=== PATIENT | male | born 1980 | race Two or more races ===

== ENCOUNTER 2025-02-20 12:17 | Inpatient (IN) | payer MEDICAID ==
[~2025-02-20] VITALS: Ht 170.2 cm; Wt 115.6 kg
--- NOTE | 2025-02-20 13:01 | ED.PDOC ---
General HPI Comments 44 y/o M, presents to the ED for CC of flank pain. Patient states, that he has been experiencing right sided flank pain that radiates to his lower back and abdomen x1day. Patient endorse, taking a Morton last night which he received from a friend who previously was diagnosed with urolithiasis. Patient denies fever, chills, body-aches, hematuria, nausea, or vomiting. No other symptoms or modifying factors present at this time. Time Seen by MD: 12:45 Primary Care Provider: None Reviewed notes: Nurses Notes, Medications, Allergies Allergies: Coded Allergies: NO KNOWN ALLERGIES (Unverified , 08/06/14) Information Source: Patient Mode of Arrival: Ambulatory Severity: Moderate Inability to void: None Timing: Days Duration: Since onset Prehospital treatment: None Onset: Spontaneous Symptoms: None History of: None Location: None Penile discharge: None Modifying factors: None associated signs and symptoms: Abdominal Pain, Flank Pain, Back Pain Past Medical History PAST MEDICAL HISTORY: Denies Surgical History: Denies all surgeries Family History Family History: Unknown Social History Smoker: Non-Smoker Alcohol: Occasionally Drugs: Denies Drug Use Lives In: Home Constitutional: denies: chills, diaphoresis, fatigue, fever, malaise, sweats, weakness, others EENTM: denies: blurred vision, double vision, ear bleeding, ear discharge, ear drainage, ear pain, ear ringing, eye pain, eye redness, hearing loss, mouth pain, mouth swelling, nasal discharge, nose bleeding, nose congestion, nose pain , photophobia, tearing, throat pain, throat swelling, voice changes, others Respiratory: denies: cough, hemoptysis, orthopnea, SOB at rest, shortness of breath, SOB with excertion, stridor, wheezing, others Cardiovascular: denies: chest pain, dizzy spells, diaphoresis, Dyspnea on exertion, edema, irregular heart beat, left arm pain, lightheadedness, palpitations, PND, syncope, others Gastrointestinal: reports: abdominal pain; denies: abdomen distended, blood streaked bowels, constipated, diarrhea, dysphagia, difficulty swallowing, hematemesis, melena, nausea, poor appetite, poor fluid intake, rectal bleeding, rectal pain, vomiting, others Genitourinary: reports: flank pain; denies: burning, dysuria, frequency, hematuria, incontinence, penile discharge, penile sore, pain, testicle pain, testicle swelling, urgency, others Neurological: reports: dizziness, fainting, headache, left sided numbness, left sided weakness, numbness, paresthesia, pre-existing deficit, right sided numbness, right sided weakness, seizure, speech problems, tingling, tremors, weakness, others Musculoskeletal: reports: back pain; denies: gout, joint pain, joint swelling, muscle pain, muscle stiffness, neck pain, others Integumetry: denies: bruises, change in color, change in hair/nails, dryness, laceration, lesions, lumps, rash, wounds, others Allergic/Immunocompromised: denies: Difficulty Healing, Frequent Infections, Hives, Itching, others Hematologic/Lymphatic: denies: anemia, blood clots, easy bleeding, easy bruising, swollen glands, others Endocrine: denies: excessive hunger, excessive sweating, excessive thirst, excessive urination, flushing, intolerance to cold, intolerance to heat, unexplained weight gain, unexplained weight loss, others Psychiatric: denies: anxiety, bipolar disorder, depression, hopeless, panic disorder, schizophrenia, sleepless, suicidal, others All Other Systems: Reviewed and Negative Physical Exam General Appearance: Moderate Distress HEENT: Normal ENT Inspection, Pharynx Normal, TMs Normal Neck: Full Range of Motion, Non-Tender, Normal, Normal Inspection Respiratory: Chest Non-Tender, Lungs Clear, No Accessory Muscle Use, No Respiratory Distress, Normal Breath Sounds Cardiovascular: No Edema, No JVD, No Murmur, No Gallop, Normal Peripheral Pulses, Regular Rate/Rhythm Breast Exam: Deferred Gastrointestinal: No Organomegaly, Non Tender, No Pulsatile Mass, Normal Bowel Sounds, Soft Genitalia: Deferred Pelvic: Deferred Rectal: Deferred Extremities: No calf tenderness, Normal capillary refill, Normal inspection, Normal range of motion, Non-tender, No pedal edema Musculoskeletal : Location: Right Extremity Location: Back Apperance: Tenderness: Moderate Neurologic: Alert, 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 Was a procedure done?: No Differential Diagnosis Kidney stone (Female): N/A Kidney stone (Male): Pancreatitis, Pyelonephritis, Urinary obstruction, Urolithiasis, Urinary tract infection X-Ray, Labs, Meds, VS Vital Signs Date Time Temp Pulse Resp B/P (MAP) Pulse Ox O2 Delivery O2 Flow Rate FiO2 02/20/25 13:45 72 72 97 Room Air* 0 21 02/20/25 13:45 98.3 72 16 116/69 (85) 97 98.3 02/20/25 12:17 98.5 88 20 134/82 (99) 96 98.5 Lab Test 02/20/25 13:14 Range/Units Sodium Level 140 136-145 mmol/L Potassium Level 3.7 3.5-5.1 mmol/L Chloride Level 107 98-107 mmol/L Carbon Dioxide Level 28 20-31 mmol/L Anion Gap 5 5-15 Blood Urea Nitrogen 16 9-23 mg/dL Creatinine 1.29 0.700-1.30 mg/dL Glomerular Filtration Rate Calc 71 >90 mL/min BUN/Creatinine Ratio 12.4 10.0-20.0 Serum Glucose 126 H 74-106 mg/dL Calcium Level 9.9 8.7-10.4 mg/dL Current Medications Medications (Trade) Dose Ordered Sig/Francisca Route Start Time Stop Time Status Last Admin Ketorolac Tromethamine (Toradol Injection) 60 mg ONCE ONCE IM 02/20/25 13:15 02/20/25 13:16 DC 02/20/25 13:38 CT ABD PEL: MPRESSION: 1. Obstructing calculus in the proximal right ureter measuring up to 4 mm associated with [id number] right hydronephrosis. Nonobstructing left lower pole renal calculus. Urology evaluation is recommended. Diffuse hepatic steatosis. Radiation optimization: All CT scans at this facility use at least one of these dose optimization techniques: Automated exposure control mA and/or kV adjustment per patient size (includes targeted exams where dose is matched to clinical indication) or iterative reconstruction. HS:Y Hep-Lock was established The patient was given a bolus of normal saline 1 L The patient was initially given Toradol 60 mg IM The chemistry panel is negative The urine test is pending At this time, the patient was being admitted to the hospitalist A urology consult will be obtained secondary to the size of the stone and hydronephrosis. Images Reviewed?: Images reviewed and evaluated by me Time of 1ST Reevaluation: 13:15 Reevaluation 1ST: Unchanged Patient Education/Counseling: Diagnosis, Treatment, Prognosis Family Education/Counseling: No Family Present Departure 1 Departure Time of Disposition: 14:53 Impression: Primary Impression: Intractable abdominal pain Additional Impressions: Hydronephrosis Qualified Codes: N13.2 - Hydronephrosis with renal and ureteral calculous obstruction Ureterolithiasis Disposition: ADMITTED INPATIENT Admit to: Med Surg Condition: Fair Critical Care Note Critical Care Time?: No Stability Stability form required: Yes Unstable for transfer: ED Physician Assesment (Clinical assesment) Heart Score Heart Score: Heart Score Response (Comments) Value History N/A 0 EKG N/A 0 Age N/A 0 Risk Factors N/A 0 Troponin N/A 0 Total 0 I personally scribed for VETO LOUIS MD ([email or web address]) on 02/20/25 at 13:00. Electronically submitted by Denise Rosa ([email or web address]). I personally scribed for VETO LOUIS MD ([email or web address]) on 02/20/25 at 14:48. Electronically submitted by Denise Rosa ([email or web address]). VETO LOUIS MD Feb 20, 2025 13:00
[2025-02-20] MEDS ORDERED: ASPirin 81 mg TAB PO ONE (13:15)
[2025-02-20 13:31] LABS: Chloride 107 mmol/L (98-107); Potassium 3.7 mmol/L (3.5-5.1); Sodium 140 mmol/L (136-145)
[2025-02-20 13:32] LABS: Anion Gap 5 (5-15); Calcium 9.9 mg/dL (8.7-10.4); Carbon Dioxide 28 mmol/L (20-31)
[2025-02-20 13:37] LABS: BUN/Creatinine Ratio 12.4 (10.0-20.0); Blood Urea Nitrogen 16 mg/dL (9-23)
[2025-02-20 13:38] LABS: Glucose 126 mg/dL (74-106)
[2025-02-20] MEDS: KETOROLAC TROMETH 60MG/2ML VIAL IM ONE (13:38)
[2025-02-20 13:45] VITALS: PULSE 72; RESP 72; O2SAT 97
--- NOTE | 2025-02-20 14:41 | DVH ---
Exam: CT CT AB PEL WO CON-NO ORAL OR IV History: pain Comparison Study: None Technique: Multidetector spiral CT of the abdomen and pelvis was performed from lung bases to pubic symphysis. Imaging was performed without IV contrast. Axial, coronal and sagittal multiplanar reform ats were obtained from the axial data set by the technologist. Radiation dose : Abdomen/Pelvis: CTDIvol 23.06 mGy, DLP 1546.19 mGy*cm. Findings: Evaluation of solid organs is limited due to lack of intravenous contrast use. Lung Bases: No acute or significant lung base finding. Normal heart size. No pleural or pericardial effusion. Liver: Diffuse hepatic steatosis. Gallbladder and biliary Tree: Unremarkable Spleen: Unremarkable Pancreas: The pancreas is grossly normal in appearance. Adrenal Glands: Unremarkable Kidneys: Mild right hydronephrosis and hydroureter with an obstructing calculus in the proximal urete r measuring up to 4 mm. Punctate left lower pole renal calculus. No left hydronephrosis. Bladder: Grossly unremarkable for degree of distention. Bowel: The stomach is grossly normal in appearance. Small bowel and colon are normal in caliber and d istribution. Normal appendix is visualized in the right lower quadrant without findings of appendicit is. Ascites: Absent Lymphadenopathy: Shotty retroperitoneal lymphadenopathy. Abdominal wall and Mesentery: Unremarkable. Vasculature: The visualized abdominal aorta is normal in size and caliber. Evaluation of abdominal a nd pelvic vessels is limited due to lack of intravenous contrast. Pelvic Organs: Unremarkable Musculoskeletal: No aggressive focal bony lesions, acute fractures or dislocation. IMPRESSION: 1. Obstructing calculus in the proximal right ureter measuring up to 4 mm associated with mild-to-mod erate right hydronephrosis. Nonobstructing left lower pole renal calculus. Urology evaluation is rec ommended. Diffuse hepatic steatosis. Radiation optimization: All CT scans at this facility use at least one of these dose optimization quan hniques: Automated exposure control mA and/or kV adjustment per patient size (includes targeted exams where dose is matched to clinical indication) or iterative reconstruction. HS:Y
[2025-02-20] MEDS: SODIUM CHLORIDE 0.9% 1,000 ML IV ONE ×2 (15:00→20:02)
[2025-02-20] MEDS ORDERED: ONDANSETRON HCL 4 MG/2 ML VIAL IV PRN (19:45)
[2025-02-20] MEDS ORDERED: ACETAMINOPHEN 325 MG TAB PO PRN (19:45)
[2025-02-20] MEDS ORDERED: TEMAZEPAM 15 MG CAP PO PRN (19:45)
[2025-02-20 20:02] LABS: Urine Bacteria None Seen /hpf (None Seen)
[2025-02-20 20:03] LABS: Basophils # (auto) 0 10 ^3/uL (0-0.2); Basophils % (auto) 0.4 % (0.0-2.0); Eosinophils # (auto) 0.2 10 ^3/uL (0-0.8); Eosinophils % (auto) 2.7 % (0.0-7.0); Hematocrit 47.3 % (41.0-53.0); Hemoglobin 15.9 g/dL (13.5-17.5); Lymphocytes # (auto) 2.3 10 ^3/uL (0.4-5.4); Lymphocytes % (auto) 29.4 % (10.0-50.0); Mean Corpuscular Hemoglobin 30.5 pg (28.0-32.0); Mean Corpuscular Hgb Conc. 33.6 g/dL (32.0-36.0); Mean Corpuscular Volume 90.9 fL (80.0-100.0); Monocytes # (auto) 0.8 10 ^3/uL (0-1.3); Monocytes % (auto) 10.3 % (0.0-12.0); Neutrophils # (auto) 4.5 10 ^3/uL (1.6-8.6); Neutrophils % (auto) 57.2 % (37.0-80.0); Nucleated Red Blood Cells % 0.2 %; Platelet Count (auto) 328 10^3/uL (140-450); Red Blood Cells 5.21 10^6/uL (4.5-5.90); Red Cell Distribution Width 14.6 % (11.8-14.3); White Blood Cell 7.9 10^3/uL (4.4-10.8)
[2025-02-20] MEDS: TAMSULOSIN HYDROCHLORIDE 0.4 MG CAP PO ONE (20:10)
[2025-02-20] MEDS: HYDROcodone-ACET 5/325MG TAB PO PRN (20:10)
[2025-02-20 20:34] LABS: Urine Blood 3+ /uL (Negative); Urine Clarity Turbid (Clear); Urine Color Yellow (Yellow); Urine Hyaline Cast FEW /lpf (0 - 2); Urine Mucus FEW (None Seen); Urine Protein, UAD 1+ (Negative); Urine Specific Gravity 1.029 (1.001-1.035); Urine Squamous Epithelial Cell FEW /hpf (<5); Urine Urobilinogen Normal (Negative)
[2025-02-20 21:50] VITALS: BP 133/77; PULSE 62; RESP 20; TEMP 98; O2SAT 97
[2025-02-20] MEDS: MORPHINE SULFATE INJ 2 MG/ml SYRG IV PRN (22:14)
--- NOTE | 2025-02-20 23:08 | DVHHP2 ---
History of Present Illness Reason for Visit: Flank pain History of Present Illness 44-year-old male presents for evaluation of flank pain. Patient endorses a one day history of right-sided flank pain that is sharp in nature and nonradiating. He also reports nausea and vomiting. Denies fever or chills. No hematuria or dysuria.. Past Medical History Denies Past Surgical History Denies Family History Noncontributory Smoke: No ALCOHOL: occassional Drugs: None Lives: with Family Review of Systems Review of Systems Review of systems are currently negative otherwise addressed in HPI. Allergies: Coded Allergies: NO KNOWN ALLERGIES (Unverified , 08/06/14) Medications Current Medications Medications Dose Ordered Sig/Francisca Route Start Time Stop Time Status Last Admin Dose Admin Acetaminophen/ Hydrocodone Bitart 1 tab Q4HP PRN PO 02/20/25 19:45 02/20/25 20:10 1 TAB Temazepam 15 mg QHSP PRN PO 02/20/25 19:45 Ondansetron HCl 4 mg Q4HP PRN IV 02/20/25 19:45 Acetaminophen 650 mg Q6HP PRN PO 02/20/25 19:45 Morphine Sulfate 2 mg Q6HPRN PRN IV 02/20/25 19:45 02/20/25 22:14 2 MG Exam Vital Signs Vital Signs Date Time Temp Pulse Resp B/P (MAP) Pulse Ox O2 Delivery O2 Flow Rate FiO2 02/20/25 22:14 62 20 133/77 02/20/25 21:50 98.0 97 98.0 02/20/25 13:45 Room Air* 0 21 Exam Gen: 44-year-old male in mild distress Skin: Warm, dry, normal color and texture, no rash. HEENT: Normocephalic atraumatic, mucous membranes moist and pink. Neck: Cervical and supraclavicular nodes normal without enlargement, trachea is midline, thyroid gland is normal without masses. Pulmonary: Clear to auscultation and percussion bilaterally. Cardiac: Regular rate and rhythm. No murmur Abdomen: Soft, right CVA tenderness, nondistended, bowel sounds present all 4 quadrants, no guarding, no rigidity, no organomegaly. Extremities: No cyanosis, clubbing, no edema Neuro: Cranial nerves II through XII grossly intact, normal affect and speech, no focal motor deficits. Labs/Xrays ORDERING PHYSICIAN: VETO LOUIS MD PROCEDURE(s): ABPL - CT AB PEL WO CON-NO ORAL OR IV REASON: pain ORDER NUMBER(s): [id number], ACCESSION NUMBER(s): [id number] Exam: CT CT AB PEL WO CON-NO ORAL OR IV History: pain Comparison Study: None Technique: Multidetector spiral CT of the abdomen and pelvis was performed from lung bases to pubic symphysis. Imaging was performed without IV contrast. Axial, coronal and sagittal multiplanar reformats were obtained from the axial data set by the technologist. Radiation dose : Abdomen/Pelvis: CTDIvol 23.06 mGy, DLP 1546.19 mGy*cm. Findings: Evaluation of solid organs is limited due to lack of intravenous contrast use. Lung Bases: No acute or significant lung base finding. Normal heart size. No pleural or pericardial effusion. Liver: Diffuse hepatic steatosis. Gallbladder and biliary Tree: Unremarkable Spleen: Unremarkable Pancreas: The pancreas is grossly normal in appearance. Adrenal Glands: Unremarkable Kidneys: Mild right hydronephrosis and hydroureter with an obstructing calculus in the proximal ureter measuring up to 4 mm. Punctate left lower pole renal calculus. No left hydronephrosis. Bladder: Grossly unremarkable for degree of distention. Bowel: The stomach is grossly normal in appearance. Small bowel and colon are normal in caliber and distribution. Normal appendix is visualized in the right lower quadrant without findings of appendicitis. Ascites: Absent Lymphadenopathy: Shotty retroperitoneal lymphadenopathy. Abdominal wall and Mesentery: Unremarkable. Vasculature: The visualized abdominal aorta is normal in size and caliber. Evaluation of abdominal and pelvic vessels is limited due to lack of intravenous contrast. Pelvic Organs: Unremarkable Musculoskeletal: No aggressive focal bony lesions, acute fractures or dislocation. IMPRESSION: 1. Obstructing calculus in the proximal right ureter measuring up to 4 mm associated with [id number] right hydronephrosis. Nonobstructing left lower pole renal calculus. Urology evaluation is recommended. Diffuse hepatic steatosis. Radiation optimization: All CT scans at this facility use at least one of these dose optimization techniques: Automated exposure control mA and/or kV adjustment per patient size (includes targeted exams where dose is matched to clinical indication) or iterative reconstruction. HS:Y Labs Test 02/20/25 13:14 02/20/25 13:00 Range/Units White Blood Count 7.9 4.4-10.8 10^3/uL Red Blood Count 5.21 4.5-5.90 10^6/uL Hemoglobin 15.9 13.5-17.5 g/dL Hematocrit 47.3 41.0-53.0 % Mean Corpuscular Volume 90.9 80.0-100.0 fL Mean Corpuscular Hemoglobin 30.5 28.0-32.0 pg Mean Corpuscular Hemoglobin Concent 33.6 32.0-36.0 g/dL Red Cell Distribution Width 14.6 H 11.8-14.3 % Platelet Count 328 140-450 10^3/uL Mean Platelet Volume 7.7 6.9-10.8 fL Neutrophils (%) (Auto) 57.2 37.0-80.0 % Lymphocytes (%) (Auto) 29.4 10.0-50.0 % Monocytes (%) (Auto) 10.3 0.0-12.0 % Eosinophils (%) (Auto) 2.7 0.0-7.0 % Basophils (%) (Auto) 0.4 0.0-2.0 % Neutrophils # (Auto) 4.5 1.6-8.6 10 ^3/uL Lymphocytes # (Auto) 2.3 0.4-5.4 10 ^3/uL Monocytes # (Auto) 0.8 0-1.3 10 ^3/uL Eosinophils # (Auto) 0.2 0-0.8 10 ^3/uL Basophils # (Auto) 0 0-0.2 10 ^3/uL Nucleated Red Blood Cells 0.2 % Sodium Level 140 136-145 mmol/L Potassium Level 3.7 3.5-5.1 mmol/L Chloride Level 107 98-107 mmol/L Carbon Dioxide Level 28 20-31 mmol/L Anion Gap 5 5-15 Blood Urea Nitrogen 16 9-23 mg/dL Creatinine 1.29 0.700-1.30 mg/dL Glomerular Filtration Rate Calc 71 >90 mL/min BUN/Creatinine Ratio 12.4 10.0-20.0 Serum Glucose 126 H 74-106 mg/dL Calcium Level 9.9 8.7-10.4 mg/dL Urine Color Yellow Yellow Urine Clarity Turbid H Clear Urine pH 6.0 5.0-9.0 Urine Specific [place] 1.029 1.001-1.035 Urine Protein 1+ H Negative Urine Ketones Trace Negative Urine Blood 3+ H Negative /uL Urine Nitrite Negative Negative Urine Bilirubin Negative Negative Urine Urobilinogen Normal Negative mg/dL Urine Leukocyte Esterase Negative Negative /uL Urine RBC 690 0 - 3 /hpf Urine Microscopic WBC 0-3 /HPF Urine Squamous Epithelial Cells Few <5 /hpf Urine Calcium Oxalate Crystals Many None Seen Urine Bacteria None seen None Seen /hpf Urine Hyaline Casts Few 0 - 2 /lpf Urine Mucus Few None Seen Urine Glucose Normal Normal mg/dL Assessment/Plan Assessment/Plan Assessment Nephrolithiasis Renal colic Right hydronephrosis Plan Admit the patient to Med surge to the hospitalist Pain management Normal saline /Flomax Urology consultation Continue treatment per orders. Plan discussed with: Patient My Orders Orders - WALT OWENS Procedure Category Date Status Time Basic Metabolic Panel LAB 02/21/25 Verified 04:00 * Urology Consult CONS 02/20/25 Transmitted 19:39 Admit ADMIT 02/20/25 Transmitted 19:39 Hydrocodone-Acet PHA 02/20/25 In Process 5/325mg Tab ([place] 19:45 Temazepam (Restoril) PHA 02/20/25 In Process 19:45 Ondansetron Hcl PHA 02/20/25 In Process (Zofran) 19:45 Condition: Stable [place] 02/20/25 In Process 19:39 Acetaminophen Tablet PHA 02/20/25 In Process (Tylenol Tablet) 19:45 Bedrest With Bathroom [place]GET[place] 02/20/25 In Process Privileg 19:39 Morphine Sulfate PHA 02/20/25 In Process Injection 19:45 Regular Diet DIET 02/21/25 Transmitted Breakfast Date of Service: Feb 20, 2025 Billing Provider: WALT OWENS Common Visit Codes: [id number] INP/OBS CARE (HIGH) WALT OWENS Feb 20, 2025 23:08
[2025-02-20 23:46] VITALS: PULSE 73; RESP 16; O2SAT 96
[2025-02-21 00:47] VITALS: BP 161/95; PULSE 80; RESP 16; TEMP 97.6; O2SAT 96
[2025-02-21 04:50] VITALS: BP 139/71; PULSE 77; RESP 16; TEMP 98.3; O2SAT 98
[2025-02-21 06:40] LABS: Potassium 3.7 mmol/L (3.5-5.1); Sodium 140 mmol/L (136-145)
[2025-02-21 06:41] LABS: Carbon Dioxide 26 mmol/L (20-31)
[2025-02-21 06:42] LABS: Calcium 9.3 mg/dL (8.7-10.4)
[2025-02-21 06:44] LABS: Anion Gap 7 (5-15); Chloride 107 mmol/L (98-107)
[2025-02-21 06:46] LABS: Glucose 97 mg/dL (74-106)
[2025-02-21 06:47] LABS: BUN/Creatinine Ratio 11.9 (10.0-20.0); Blood Urea Nitrogen 13 mg/dL (9-23)
[2025-02-21 07:30] VITALS: BP 122/64; PULSE 78; RESP 18; TEMP 98.7; O2SAT 98
[2025-02-21 08:05] VITALS: O2SAT 97
[2025-02-21 13:00] VITALS: BP 134/71; PULSE 73; RESP 18; TEMP 98.4; O2SAT 97
--- NOTE | 2025-02-21 16:10 | DVH ---
INDICATION: hydronephrosis interval TECHNIQUE: Multiple real-time sonographic images of the kidneys and bladder were obtained. COMPARISON: None FINDINGS: There is no evidence for hydronephrosis involving the right kidney. Right kidney has normal corticom edullary differentiation and normal cortical thickness and normal hilar fat. Right kidney measures 11.95 x 6.3 x 6.15 cm and has a 2.35 cm cortex The liver is echogenic probably fatty infiltrative Left kidney has normal corticomedullary differentiation and normal renal hilar fat has a normal thick cortex. Left kidney measures 11.65 x 6.35 X5.1 5 cm and has a 2.15 cm thick cortex. There is a proba ble tiny stone in the cortex of the inferior aspect of the left kidney that measures 3 mm in size it is non occluding. Probably in a calyx Bladder volume is 131.7 cc. There are no filling defects in the bladder bladder wall is slightly thickened at 6.3 mm. Prostate me asures 4.45 x 3.7 x 3.65 cm for total volume of 31.65 cc. IMPRESSION: Kidneys are unremarkable except for tiny stone probably in the calyx in the inferior pole of the left kidney. Liver appears to be echogenic and probably fatty infiltrated Prostate is slightly prominent .
[2025-02-21 16:59] VITALS: BP 130/66; RESP 74; TEMP 98.4; O2SAT 18
[2025-02-21] MEDS ORDERED: TAMS-35 PO (17:43)
[2025-02-21] MEDS ORDERED: IBU600T PO (17:43)
--- NOTE | 2025-02-21 20:05 | DVHDS2 ---
Discharge Summary Date of Admission Feb 20, 2025 at 19:39 Date of Discharge: Feb 21, 2025 Labs/Diagnostic Data: Laboratory Results Test 02/21/25 05:44 02/20/25 13:14 02/20/25 13:00 Sodium Level 140 mmol/L (136-145) Potassium Level 3.7 mmol/L (3.5-5.1) Chloride Level 107 mmol/L (98-107) Carbon Dioxide Level 26 mmol/L (20-31) Anion Gap 7 (5-15) Blood Urea Nitrogen 13 mg/dL (9-23) Creatinine 1.09 mg/dL (0.700-1.30) Glomerular Filtration Rate Calc 87 mL/min (>90) BUN/Creatinine Ratio 11.9 (10.0-20.0) Serum Glucose 97 mg/dL (74-106) Calcium Level 9.3 mg/dL (8.7-10.4) White Blood Count 7.9 10^3/uL (4.4-10.8) Red Blood Count 5.21 10^6/uL (4.5-5.90) Hemoglobin 15.9 g/dL (13.5-17.5) Hematocrit 47.3 % (41.0-53.0) Mean Corpuscular Volume 90.9 fL (80.0-100.0) Mean Corpuscular Hemoglobin 30.5 pg (28.0-32.0) Mean Corpuscular Hemoglobin Concent 33.6 g/dL (32.0-36.0) Red Cell Distribution Width 14.6 % (11.8-14.3) Platelet Count 328 10^3/uL (140-450) Mean Platelet Volume 7.7 fL (6.9-10.8) Neutrophils (%) (Auto) 57.2 % (37.0-80.0) Lymphocytes (%) (Auto) 29.4 % (10.0-50.0) Monocytes (%) (Auto) 10.3 % (0.0-12.0) Eosinophils (%) (Auto) 2.7 % (0.0-7.0) Basophils (%) (Auto) 0.4 % (0.0-2.0) Neutrophils # (Auto) 4.5 10 ^3/uL (1.6-8.6) Lymphocytes # (Auto) 2.3 10 ^3/uL (0.4-5.4) Monocytes # (Auto) 0.8 10 ^3/uL (0-1.3) Eosinophils # (Auto) 0.2 10 ^3/uL (0-0.8) Basophils # (Auto) 0 10 ^3/uL (0-0.2) Nucleated Red Blood Cells 0.2 % Urine Color Yellow (Yellow) Urine Clarity Turbid (Clear) Urine pH 6.0 (5.0-9.0) Urine Specific [place] 1.029 (1.001-1.035) Urine Protein 1+ (Negative) Urine Ketones Trace (Negative) Urine Blood 3+ /uL (Negative) Urine Nitrite Negative (Negative) Urine Bilirubin Negative (Negative) Urine Urobilinogen Normal mg/dL (Negative) Urine Leukocyte Esterase Negative /uL (Negative) Urine RBC 690 /hpf (0 - 3) Urine Microscopic WBC /HPF (0-3) Urine Squamous Epithelial Cells Few /hpf (<5) Urine Calcium Oxalate Crystals Many (None Seen) Urine Bacteria None seen /hpf (None Seen) Urine Hyaline Casts Few /lpf (0 - 2) Urine Mucus Few (None Seen) Urine Glucose Normal mg/dL (Normal) Other Laboratory Tests 02/21/25 05:44 02/20/25 13:14 Brief Hx & Hospital Course: 44 M with no significant PMH admitted for flank pain. CT showed 4mm uretheral stone and hydronephrosis. Patient was evaluated and reported pain has gone, no NV. renal US with no further hydronephrosis but pelvic stone. Patient was discharged with flomax and to follow up with urology as outpatient Condition at Discharge: Good Final Diagnosis/Problems List ureterolithiasis hydronephrosis Discharge Disposition: Home Discharge Instruct/Medications Diet: Regular Activity: No Restrictions, As Tolerated Follow Up/Referral: urology Medications: flomax Discharge Statement: "Patient was advised to return to the ER or call 911 if any headaches, dizziness, shortness of breath, chest pain, abdominal pain, bleeding, fevers, or worsening of medical condition. Patient was counseled about treatment plan, medications, possible side effects, patientverbalized understanding. All questions were answered to the best of my ability. This discharge took greater then 30 minutes in planning, reviewing documentation, counseling the patient, and discussing with other team members." ASSESSMENT ASSESSMENT Assessment ureterolithiasis hydronephrosis Date of Service: Feb 21, 2025 Billing Provider: SOFY BRAN MD Common Visit Codes: 90244-JOS/OBS DISCH DAY >30min SOFY BRAN MD Feb 21, 2025 20:05
== END 2025-02-21 19:45 | disposition home or self-care (01) | DRG 465 ==
LOC: ER 12:17 → OVERFLOW 19:39 → CENTRAL 19:42
PROVIDERS: ADMIT Student in an Organized Health Care Education/Training Program; ATTEND Student in an Organized Health Care Education/Training Program
DX: N13.2 Hydronephrosis with renal and ureteral calculous obstruction (principal); N23 Unspecified renal colic
CPT/HCPCS: 36415; 74176; 76775; 80048; 81001; 85025; 96372; G0378; J1885